=== PATIENT | male | born 1955 | race Caucasian/White ===

== ENCOUNTER → 2017-03-18 | Outpatient (CLI) | payer OTHER ==
--- NOTE | 2017-03-18 10:36 | CT ---
EXAMINATION TYPE: CT chest wo con DATE OF EXAM: 03/18/2017 COMPARISON: NONE HISTORY: SOB, Cough CT DLP: 268.3 mGycm, Automated exposure control for dose reduction was used. CONTRAST: Performed injected with 0 mL of Omnipaque 350. TECHNIQUE: Axial images were obtained at 5 mm thick sections. Reconstructed images are reviewed on [employer] computer in the coronal plane. FINDINGS: Portion of the thyroid visualized is normal. No suspicious lung nodules or focal infiltrates are present. No enlarged mediastinal or hilar adenopathy is evident. The ascending aorta diameter at the level o f the main pulmonary artery is 3.7 cm. The main pulmonary artery diameter at the bifurcation is 1.9 cm. Some coronary artery calcification is present. Limited CT sections are obtained through the upper abdomen. Abdomen is essentially unremarkable. IMPRESSIONS: 1. Normal Chest CT.
== END | disposition home or self-care (01) ==
LOC: RADCTMAIN 08:53
PROVIDERS: ATTEND Family Medicine
DX: R06.02 Shortness of breath (principal); R05 Cough
CPT/HCPCS: 71250

== ENCOUNTER → 2019-06-24 | Outpatient (CLI) | payer MEDICARE, BC ==
--- NOTE | 2019-06-24 10:57 | US ---
EXAMINATION TYPE: US duplex aorta DATE OF EXAM: 06/24/2019 COMPARISON: NONE CLINICAL HISTORY: Z13.6 encounter for cardiovascular disorders. EXAM MEASUREMENTS: Abdominal Aorta: Proximal: 2.0 Mid: 1.4 Distal: 1.5 Bifurcation: Rt: 1.1cm Lt: 1.3cm Mild atherosclerotic changes noted. Grayscale, color Doppler and spectral Doppler imaging performed. Atheromatous changes are present, ir regular wall is noted to the aortoiliac vasculature. IMPRESSION: No evident abdominal aortic aneurysm
== END | disposition home or self-care (01) ==
LOC: RADUSWWP 10:08
PROVIDERS: ATTEND Family Medicine
DX: Z13.6 Encounter for screening for cardiovascular disorders (principal)
CPT/HCPCS: 93979

== ENCOUNTER → 2019-07-29 | Outpatient (CLI) | payer MEDICARE, BC ==
--- NOTE | 2019-07-29 12:08 | CTL ---
EXAMINATION TYPE: CT Low Dose Lung DATE OF EXAM ORDERED: 07/29/2019 HISTORY: Long-term tobacco use. Lung cancer screening CT DLP: 97.[address] CTDI: 2.4 mGy Automated exposure control for dose reduction was used. SCREENING VISIT: Initial study COMPARISON: Chest CT November 15, 2016. TECHNIQUE: Low dose computed tomography scan was performed through the chest at 1 mm thick sections a nd reconstructed images in the coronal plane at [address] DIAGNOSTIC QUALITY: Satisfactory FINDINGS: LUNG NODULES: None. LUNGS: COPD: Severity: Mild Fibrosis: Severity: Mild Lymph nodes: No new greater than 1 cm Other findings: None BILATERAL PLEURAL SPACE: Effusion: None Calcification: None Thickening: None Pneumothorax: None HEART: Heart Size: Normal Coronary calcification: Mild Pericardial effusion: None OTHER FINDINGS: Upper abdomen: None Bony thorax: Mild multilevel spurring. Supraclavicular region: None Other: Small degree of subareolar gynecomastia redemonstrated. IMPRESSION: Mild emphysematous change without suspicious nodules. FOLLOW UP CT CHEST RECOMMENDATION: Annual low-dose lung screening CT CT LUNG RAD: Lung-Rad 1 Negative
== END | disposition home or self-care (01) ==
LOC: RADCTMAIN 11:32
PROVIDERS: ATTEND Family Medicine
DX: J43.9 Emphysema, unspecified (principal); Z87.891 Personal history of nicotine dependence

== ENCOUNTER → 2020-02-02 | Outpatient (CLI) | payer MEDICARE, BC ==
[2020-02-02 13:53] LABS: Basophils # (A) 0.1 k/uL (0-0.2); Basophils % (A) 1 %; Eosinophils # (A) 0.1 k/uL (0-0.7); Eosinophils % (A) 2 %; HCT 46.6 % (39.0-53.0); HGB 15.3 gm/dL (13.0-17.5); Lymphocytes # (A) 1.5 k/uL (1.0-4.8); Lymphocytes % (A) 21 %; MCH 31.6 pg (25.0-35.0); MCHC 32.8 g/dL (31.0-37.0); MCV 96.4 fL (80.0-100.0); Mean Platelet Volume 7.4; Monocytes # (A) 0.4 k/uL (0-1.0); Monocytes % (A) 6 %; Neutrophils % (A) 69 %; Platelet Count 212 k/uL (150-450); RBC 4.83 m/uL (4.30-5.90); RDW 12.6 % (11.5-15.5); WBC 7.2 k/uL (3.8-10.6)
== END | disposition home or self-care (01) ==
LOC: LABPAT 12:20
PROVIDERS: ATTEND Surgery
DX: Z01.818 Encounter for other preprocedural examination (principal)
CPT/HCPCS: 85025

== ENCOUNTER 2020-02-09 08:05 | Day surgery (SDC) | payer MEDICARE, BC ==
[2020-02-03 10:23] VITALS: BMI 21.2
[~2020-02-09 08:05] MED LIST: ACETAMINOPHEN TAB 500 MG TAB PO ONE; DEXAMETHASONE SOD PHOSPHATE 10 MG/ML 1 ML VIAL IV ONE; HEPARIN SODIUM,PORCINE 5,000 UNIT/ML 1 ML VIAL SQ ONE; LACTATED RINGERS 1,000 ML IV SCH; MIDAZOLAM 2 MG/2 ML VIAL IV PRN; ONDANSETRON 4 MG/2 ML VIAL IVP ONE
[2020-02-09] MEDS ORDERED: ACETAMINOPHEN TAB 500 MG TAB ONE (08:35)
[2020-02-09] MEDS ORDERED: HEPARIN SODIUM,PORCINE 5,000 UNIT/ML 1 ML VIAL ONE (08:36)
[2020-02-09] MEDS ORDERED: ONDANSETRON 4 MG/2 ML VIAL ONE (08:36)
[2020-02-09 08:50] LABS: Glucose,Whole Blood 150 mg/dL (75-99)
--- NOTE | 2020-02-09 09:23 | P.GSHP ---
History of Present Illness H&P Date: 02/09/20 Chief Complaint: Left inguinal hernia This a 64-year-old male who presents today for laparoscopic robotic-assisted repair of left inguinal hernia. Patient still pain and left groin. Past Medical History Past Medical History: Diabetes Mellitus, Hyperlipidemia, Osteoarthritis (OA) Additional Past Medical History / Comment(s): unexplained wt loss of 25 lbs over past 2 years History of Any Multi-Drug Resistant Organisms: None Reported Past Surgical History: Orthopedic Surgery Additional Past Surgical History / Comment(s): gerson cataracts, "surgery to reconstruction thumb sockets" Past Anesthesia/Blood Transfusion Reactions: Unable to Obtain, Previous Problems w/ Anesthesia Additional Past Anesthesia/Blood Transfusion Reaction / Comment(s): woke up during surgery, nerve block did not work for hand surgery, not sure of family hx Smoking Status: Current every day smoker - Past Family History Father Family Medical History: Cancer Medications and Allergies Home Medications Medication Instructions Recorded Confirmed Type Simvastatin [Zocor] 40 mg PO HS 02/03/20 02/09/20 History metFORMIN HCL [Glucophage] 1,000 mg PO BID 02/03/20 02/09/20 History Allergies Allergy/AdvReac Type Severity Reaction Status Date / Time No Known Allergies Allergy Verified 02/03/20 10:12 Surgical - Exam Vital Signs Temp Pulse Resp BP Pulse Ox 98.6 F 68 17 138/73 95 02/09/20 08:55 02/09/20 08:55 02/09/20 08:55 02/09/20 08:55 02/09/20 08:55 - General well developed, well nourished, no distress - Eyes PERRL - ENT normal pinna - Neck no masses - Respiratory normal expansion - Cardiovascular Rhythm: regular - Abdomen Abdomen: soft, non tender Hernia: inguinal (Left inguinal hernia) Results - Labs Abnormal Lab Results - Last 24 Hours (Table) 02/09/20 Range/Units 08:48 POC Glucose (mg/dL) 150 H (75-99) mg/dL Assessment and Plan Assessment: Left and one hernia. We'll perform laparoscopic robotic-assisted repair.
[2020-02-09] MEDS ORDERED: PHENYLEPHRINE-0.9% NACL SYG 1 MG/10 ML SYRINGE ONE (09:42)
[2020-02-09] MEDS ORDERED: LIDOCAINE 1% INJ 10MG/ML (20 ML MDV) ONE (09:42)
[2020-02-09] MEDS ORDERED: SUCCINYLCHOLINE CHLORIDE 100 MG/5 ML SYR IV ONE (09:42)
[2020-02-09] MEDS ORDERED: PROPOFOL 10 MG/ML 20 ML VIAL IV ONE (09:42)
[2020-02-09] MEDS ORDERED: fentaNYL (PF) 50 MCG/ML 2 ML AMP ONE (09:42)
[2020-02-09] MEDS ORDERED: ROCURONIUM BROMIDE 10 MG/ML 5 ML VIAL IV ONE (09:42)
[2020-02-09] MEDS ORDERED: NEOSTIGMINE 1 MG/ML 10 ML VIAL ONE (09:42)
[2020-02-09] MEDS ORDERED: GLYCOPYRROLATE 0.2 MG/ML 2 ML VIAL ONE (09:42)
[2020-02-09] MEDS ORDERED: MIDAZOLAM 2 MG/2 ML VIAL ONE (09:42)
[2020-02-09] MEDS ORDERED: LACTATED RINGERS 1,000 ML IV ONE (10:07)
[2020-02-09] MEDS ORDERED: LIDOCAINE 1%-EPI 1:100,000 20 ML VIAL SQ ONE (10:11)
--- NOTE | 2020-02-09 10:43 | P.OP ---
Date of Procedure: 02/09/20 Preoperative Diagnosis: Left inguinal hernia Postoperative Diagnosis: Bilateral inguinal hernia Procedure(s) Performed: Laparoscopic robotic Bilateral inguinal hernia Anesthesia: ALLY Surgeon: Riley Jacob Estimated Blood Loss (ml): 5 Pathology: none sent Condition: stable Disposition: PACU Description of Procedure: The patient's placed on the operating table in the supine position. The patient received general anesthesia. The patient's abdomen was prepped and draped in usual sterile fashion. The skin was anesthetized 1% local Xylocaine at the incision sites. Using an 11 blade a skin incision was made at the umbilicus. The fascia was grasped with a Ileana and then the peritoneal cavity was entered with the Veress needle. Position of the Veress needle was confirmed with a positive drop test. After adequate insufflation a 5 mm trocar was placed into the peritoneal cavity. The Laparoscope was placed the peritoneal cavity. And a robotic 8 mm trocar was placed in the right lateral position and then another 8 mm robotic trochars placed in the left lateral position. The original 5 mm trocar was exchanged for a 12 mm trocar. The patient was placed in reverse Trendelenburg and then the patient was docked to the robot. Next the peritoneum over top of the right inguinal hernia was incised and then using blunt and sharp dissection and electrocautery the hernia sac was dissected free from the floor of the inguinal canal. The hernia sac was completely reduced into the peritoneal cavity. And then using the Pro air route traffic controller mesh the hernia was repaired. The peritoneum was then sutured with 20V lock suture. Next the peritoneum over top of the left inguinal hernia was incised and then using blunt and sharp dissection and electrocautery the hernia sac was dissected free from the floor of the inguinal canal. The hernia sac was completely reduced into the peritoneal cavity. And then using the Pro air route traffic controller mesh the hernia was repaired. The peritoneum was then sutured with 20V lock suture. The patient was then undocked the robot. The needle was withdrawn from the peritoneal cavity. The umbilical trocar site was closed with 0 Ethibond suture. The skin was closed interrupted 3-0 Monocryl suture. Dermabond dressing was applied. Patient was sent to recovery in stable condition.
[2020-02-09] MEDS: HYDROmorphone 0.5 MG/0.5 ML SYRINGE IVP PRN ×2 (10:53→10:58)
[2020-02-09 10:58] VITALS: RESP 16; TEMP 97.2
[2020-02-09 11:12] LABS: Glucose,Whole Blood 207 mg/dL (75-99)
[2020-02-09 11:42] VITALS: BP 122/55; PULSE 65
[2020-02-09] MEDS ORDERED: HYDROcodone/APAP 5-325MG 1 EACH TAB ONE (11:50)
[2020-02-09] MEDS ORDERED: HYDROcodone/APAP 5-325MG 1 EACH TAB PO ONE (12:20)
== END 2020-02-09 12:42 | disposition home or self-care (01) ==
LOC: OR 08:05
PROVIDERS: ATTEND Surgery
DX: K40.20 Bilateral inguinal hernia, without obstruction or gangrene, not specified as recurrent (principal); E11.9 Type 2 diabetes mellitus without complications; E78.5 Hyperlipidemia, unspecified; M19.90 Unspecified osteoarthritis, unspecified site; F17.210 Nicotine dependence, cigarettes, uncomplicated; Z79.84 Long term (current) use of oral hypoglycemic drugs; Z79.899 Other long term (current) drug therapy; Z98.41 Cataract extraction status, right eye; Z98.42 Cataract extraction status, left eye; Z98.890 Other specified postprocedural states; Z80.9 Family history of malignant neoplasm, unspecified
CPT/HCPCS: 49650; C1781; J2250; J1644; J1100; J2710; J0690; J2405; J2001; J3010; J2370; J0330; J2704; J1170

== ENCOUNTER → 2020-08-14 | Outpatient (CLI) | payer MEDICARE, BC ==
--- NOTE | 2020-08-14 15:48 | CTL ---
EXAMINATION TYPE: CT Low Dose Lung DATE OF EXAM ORDERED: 08/14/2020 HISTORY: Personal history tobacco use. Lung cancer screening CT DLP: 87.[address] CTDI: 2.2 mGy Automated exposure control for dose reduction was used. SCREENING VISIT: Subsequent COMPARISON: 07/29/2019 TECHNIQUE: Low dose computed tomography scan was performed through the chest at 1 mm thick sections a nd reconstructed images in the coronal plane at [address] DIAGNOSTIC QUALITY: Satisfactory FINDINGS: LUNG NODULES: None. Tiny area of pneumonitis is in the posterior medial left apex. Series 4 image 26. Couple small areas of mild emphysematous blebs and bulla may be present. Mild peribronchial thickening may be present. LUNGS: COPD: Severity: Mild Fibrosis: Severity: None Lymph nodes: None Other findings: None RIGHT PLEURAL SPACE: Effusion: None Calcification: None Thickening: None Pneumothorax: None LEFT PLEURAL SPACE: Effusion: None Calcification: None Thickening: None Pneumothorax: None HEART: Heart Size: Normal Coronary calcification: Mild Pericardial effusion: None OTHER FINDINGS: Upper abdomen: Normal Bony thorax: Normal Supraclavicular region: Normal Other: Ascending thoracic aorta at the level the main pulmonary artery measures 3.3 cm. The main pul monary artery at the bifurcation measures 2.3 cm. IMPRESSION: No suspicious changes. FOLLOW UP CT CHEST RECOMMENDATION: Low dose CT chest [address] LUNG RAD: 2
== END | disposition home or self-care (01) ==
LOC: RADCTMAIN 13:34
PROVIDERS: ATTEND Family Medicine
DX: Z12.2 Encounter for screening for malignant neoplasm of respiratory organs (principal); F17.210 Nicotine dependence, cigarettes, uncomplicated
CPT/HCPCS: 71271

== ENCOUNTER 2020-11-21 09:46 | Day surgery (SDC) | payer MEDICARE, BC ==
[2020-11-17 09:12] VITALS: BMI 21.5
[~2020-11-21 09:46] MED LIST changes: -ACETAMINOPHEN TAB 500 MG TAB PO ONE; +ACETAMINOPHEN TAB 500 MG TAB PO PRN; -DEXAMETHASONE SOD PHOSPHATE 10 MG/ML 1 ML VIAL IV ONE; +DEXAMETHASONE SOD PHOSPHATE 4 MG/ML 1 ML VIAL IV ONE; -HEPARIN SODIUM,PORCINE 5,000 UNIT/ML 1 ML VIAL SQ ONE; +HEPARIN SODIUM,PORCINE/PF 5,000 UNIT/0.5 ML SYRINGE SQ PRN; +HYDROmorphone 0.5 MG/0.5 ML SYRINGE IVP PRN; +LIDOCAINE 1% (10MG/ML) FOR IV START INTRADERMA PRN
[2020-11-21 10:34] LABS: Glucose,Whole Blood 153 mg/dL (75-99)
--- NOTE | 2020-11-21 11:18 | P.GSHP ---
History of Present Illness H&P Date: 11/21/20 Chief Complaint: Incarcerated left inguinal hernia This 65-year-old male has developed incarcerated left renal hernia. Patient rents today for open repair. Past Medical History Past Medical History: COPD, Diabetes Mellitus, Hyperlipidemia Additional Past Medical History / Comment(s): "low blood pressure", History of Any Multi-Drug Resistant Organisms: None Reported Past Surgical History: Hernia Repair, Orthopedic Surgery Additional Past Surgical History / Comment(s): reconstruction gerson thumbs sockets, gerson cataracts Past Anesthesia/Blood Transfusion Reactions: Previous Problems w/ Anesthesia Additional Past Anesthesia/Blood Transfusion Reaction / Comment(s): woke up during both thumb surgeries. "nerve block did not work and woke up with general" Smoking Status: Current every day smoker - Past Family History Father Family Medical History: Cancer Brother(s) Family Medical History: Cancer Medications and Allergies Home Medications Medication Instructions Recorded Confirmed Type Simvastatin [Zocor] 40 mg PO HS 02/03/20 11/17/20 History metFORMIN HCL [Glucophage] 1,000 mg PO BID 02/03/20 11/17/20 History Allergies Allergy/AdvReac Type Severity Reaction Status Date / Time No Known Allergies Allergy Verified 11/21/20 10:09 Surgical - Exam Vital Signs Temp Pulse Resp BP Pulse Ox 97.6 F 79 17 138/73 98 11/21/20 10:14 11/21/20 10:14 11/21/20 10:14 11/21/20 10:14 11/21/20 10:14 - General well developed, well nourished, no distress - Eyes PERRL - ENT normal pinna - Neck no masses - Respiratory normal expansion - Cardiovascular Rhythm: regular - Abdomen Abdomen: soft, non tender Hernia: inguinal (Left inguinal hernia incarcerated) Results - Labs Abnormal Lab Results - Last 24 Hours (Table) 11/21/20 Range/Units 10:32 POC Glucose (mg/dL) 153 H (75-99) mg/dL Assessment and Plan Assessment: Cursory left renal hernia. We'll perform open repair.
[2020-11-21] MEDS ORDERED: MIDAZOLAM 2 MG/2 ML VIAL ONE (11:32)
[2020-11-21] MEDS ORDERED: NEOSTIGMINE 1 MG/ML 10 ML VIAL ONE (11:32)
[2020-11-21] MEDS ORDERED: PROPOFOL 10 MG/ML 20 ML VIAL IV ONE (11:32)
[2020-11-21] MEDS ORDERED: SUCCINYLCHOLINE CHLORIDE 100 MG/5 ML SYR IV ONE (11:32)
[2020-11-21] MEDS ORDERED: fentaNYL (PF) 50 MCG/ML 2 ML AMP ONE (11:32)
[2020-11-21] MEDS ORDERED: LIDOCAINE 1% INJ 10MG/ML (20 ML MDV) ONE (11:32)
[2020-11-21] MEDS ORDERED: GLYCOPYRROLATE 0.2 MG/ML 2 ML VIAL ONE (11:32)
[2020-11-21] MEDS ORDERED: ROCURONIUM 10 MG/ML (5 ML VIAL) IV ONE (11:32)
[2020-11-21] MEDS ORDERED: BUPIVACAIN-EPI 0.5%-1:200,000 30 ML VIAL SQ ONE (11:58)
[2020-11-21] MEDS ORDERED: LACTATED RINGERS 1,000 ML IV ONE (12:06)
--- NOTE | 2020-11-21 12:15 | P.OP ---
Date of Procedure: 11/21/20 Preoperative Diagnosis: Left inguinal hernia Postoperative Diagnosis: Left inguinal hernia Procedure(s) Performed: Repair of left inguinal hernia with Prolene hernia mesh system plug Anesthesia: ALLY Surgeon: Riley Jacob Estimated Blood Loss (ml): 5 Pathology: none sent Condition: stable Disposition: PACU Description of Procedure: DESCRIPTION OF PROCEDURE: The patient was placed in the supine position after receiving adequate anesthesia. Patients groin was prepped and draped in the usual sterile fashion. A standard hernia incision was made and the subcutaneous tissues were divided with electrocautery. The fascia of the external oblique was exposed. A mandie the fascia was made with #15 blade. The fascia was then opened with pair of Metzenbaum scissors. A Weitlaner retractor was placed in the wound and the cord structures were grasped and dissected free from the inguinal canal. A rubber Ruth Ann drain was placed around the cord structures. The hernial sac was seen on the anterior-medial portion of the cord and this was dissected free from the cord. The hernia sac was then invaginated to the peritoneal cavity. Using blunt finger dissection, the preperitoneal space was dissected and then the Prolene hernial mesh plug was placed into the prepared space. The inferior leaf was expanded. The superior leaf was secured to the pubic tubercle using 2-0 Prolene suture. The lateral portion of the superior leaf was incised and cords tied and secured to the transversalis fascia using 2-0 Prolene suture. Fascia of the external oblique was then closed using #0 Vicryl suture. The Ruth Ann drain was removed. The Scarpas fascia was then closed with 3-0 Vicryl suture and skin was closed with vinicio. The patient tolerated the procedure well.
[2020-11-21 12:28] VITALS: TEMP 97
[2020-11-21 13:28] VITALS: RESP 18
[2020-11-21 14:10] VITALS: BP 112/78; PULSE 62
== END 2020-11-21 14:15 | disposition home or self-care (01) ==
LOC: OR 09:46
PROVIDERS: ATTEND Surgery
DX: K40.90 Unilateral inguinal hernia, without obstruction or gangrene, not specified as recurrent (principal); J44.9 Chronic obstructive pulmonary disease, unspecified; E11.9 Type 2 diabetes mellitus without complications; E78.5 Hyperlipidemia, unspecified; Z79.899 Other long term (current) drug therapy; Z79.84 Long term (current) use of oral hypoglycemic drugs
CPT/HCPCS: 49505; C1781; J2250; J1100; J2710; J0690; J2405; J2001; J3010; J0330; J2704; J1644

== ENCOUNTER → 2021-08-31 | Outpatient (CLI) | payer MEDICARE, BC ==
--- NOTE | 2021-08-31 08:39 | CTL ---
EXAMINATION TYPE: CT Low Dose Lung DATE OF EXAM ORDERED: 08/31/2021 HISTORY: Smoker. Lung cancer screening CT DLP: 77.[address] CTDI: 2.0 mGy Automated exposure control for dose reduction was used. SCREENING VISIT: Follow-up COMPARISON: CT dated 08/14/2020 TECHNIQUE: Low dose computed tomography scan was performed through the chest at 1 mm thick sections a nd reconstructed images in multiple planes at 1 mm and [address] DIAGNOSTIC QUALITY: Satisfactory FINDINGS: LUNG NODULES: Left upper lobe solid [address] image 100. This nodule is stable. Left lung apex semisolid [address] image 47. This nodule is stable. LUNGS: COPD: Severity: Mild to moderate Fibrosis: Severity: Minimal bilateral apical fibrotic changes Lymph nodes: No pathologically enlarged lymph nodes Other findings: None RIGHT PLEURAL SPACE: Effusion: None Calcification: None Thickening: None Pneumothorax: None LEFT PLEURAL SPACE: Effusion: None Calcification: None Thickening: None Pneumothorax: None HEART: Heart Size: Normal Coronary Calcification: Mild to moderate Pericardial Effusion: None OTHER FINDINGS: Upper abdomen: Stable thickened left adrenal. Bony thorax: No aggressive bone lesion Supraclavicular region: None Other: Scattered arterial atherosclerotic calcifications IMPRESSION: Stable lung nodules and COPD changes. CT LUNG RAD AND CT CHEST RECOMMENDATION: Lung-Rad 2 Benign Appearance or Behavior: Continue annual sc reening with LDCT in 12 months. S Modifier (other clinically significant findings): None
== END | disposition home or self-care (01) ==
LOC: RADCTMAIN 07:19
PROVIDERS: ATTEND Family Medicine
DX: Z12.2 Encounter for screening for malignant neoplasm of respiratory organs (principal); R91.8 Other nonspecific abnormal finding of lung field; J44.9 Chronic obstructive pulmonary disease, unspecified; F17.210 Nicotine dependence, cigarettes, uncomplicated
CPT/HCPCS: 71271

== ENCOUNTER → 2022-03-05 | Outpatient (CLI) | payer MEDICARE, BC ==
--- NOTE | 2022-03-05 10:07 | CA ---
Exercise Stress Test Report Name: Geovani Sewell Exam Date: 03/05/2022 09:27 Exam Location: [place] Stress Ht (in): 70 Wt (lb): 140 BSA: 1.79 Ordering Phys: Bill Vincent DO Referring Phys: Bill Vincent DO Technologist: Prakash Hi Age: 66 Gender: M : 1955 Procedure CPT: Indications: I65.29 OCCLUSION AND STENOSIS OF UNSPECIFIED R07.9 ICD-10 Codes: Patient History: Chest Pain Medications: Metformin and Atorvastatin Meds past 24 hrs: Pretest Chest Pain: STRESS TEST Fritz Protocol Exercise Duration (min:sec): 10:[address] Depressions (mm): Angina Score: Osuna Score: Resting HR (bpm): 70 Peak HR (bpm): 140 Resting BP (mmHg): 136 / 79 Peak BP (mmHg): 140 / 85 MPHR: 153 Target HR: 130 % MPHR: 92 METS: 12.1 Total Dose: Peak Dose: Atropine: Double Product: 11274 BP Response: Stress Termination: Reached target heart rate Stress Symptoms: No chest pain or symptoms Stress Summary: ECG ANALYSIS Resting ECG: Stress ECG: CONCLUSIONS Good exercise capacity. Baseline EKG revealed normal sinus rhythm no significant ST-T changes. Patient walked for 10 minutes 40 seconds and achieved a heart rate of 140 bpm which is 92% of predicted maximal. Blood pressure went up from 136/79- 140/85. Somewhat of a blunted blood pressure response. However but no symptoms of angina EKG was unremarkable for ischemia there was no arrhythmia. This is a negative stress test with excellent excise capacity Dr. Kelsea Cox MD (Electronically Signed) Final Date: 05 March 2022 10:06
== END | disposition home or self-care (01) ==
LOC: RADNMMAIN 08:51
PROVIDERS: ATTEND Family Medicine
DX: R07.9 Chest pain, unspecified (principal)
CPT/HCPCS: 93017

== ENCOUNTER → 2022-03-06 | Outpatient (CLI) | payer MEDICARE, BC ==
--- NOTE | 2022-03-07 07:39 | CA ---
Transthoracic Echo Report Name: Geovani Sewell Age: 66 Gender: M : 1955 Exam Date: 03/06/2022 14:09 Exam Location: [place] Echo Ht (in): 70 Wt (lb): 140 Ordering Physician: Bill Vincent DO Attending/Referring Phys: Bill Vincent DO Supervisor Mechanic Boilermaking Florencia Baer RDCS Procedure CPT: Indications: I65.29 CCLUSION AND STENOSIS OF UNSPECIFIED R07.9 Cardiac Hx: Technical Quality: Fair Contrast 1: Total Dose (mL): Contrast 2: Total Dose (mL): MEASUREMENTS (Male / Female) Normal Values 2D ECHO LV Diastolic Diameter PLAX 3.2 cm 4.2 - 5.9 / 3.9 - 5.3 cm LV Systolic Diameter PLAX 2.5 cm IVS Diastolic Thickness 1.0 cm 0.6 - 1.0 / 0.6 - 0.9 cm LVPW Diastolic Thickness 1.0 cm 0.6 - 1.0 / 0.6 - 0.9 cm LV Relative Wall Thickness 0.6 M-MODE Aortic Root Diameter MM 3.3 cm LA Systolic Diameter MM 1.8 cm LA Ao Ratio MM 0.6 MV E Point Septal Separation 1.2 cm AV Cusp Separation MM 1.5 cm DOPPLER AV Peak Velocity 118.9 cm/s AV Peak Gradient 5.7 mmHg MV Area PHT 6.6 cm??? MR Peak Velocity 124.1 cm/s MR Peak Gradient 6.2 mmHg Mitral E Point Velocity 56.7 cm/s Mitral A Point Velocity 82.1 cm/s Mitral E to A Ratio 0.7 MV Deceleration Time 114.2 ms MV E' Velocity 9.8 cm/s Mitral E to MV E' Ratio 5.8 TR Peak Velocity 114.9 cm/s TR Peak Gradient 5.3 mmHg Right Ventricular Systolic Press 10.2 mmHg FINDINGS Left Ventricle Left ventricular ejection fraction is estimated at 55-60 %. Normal Left ventricular size, wall thickness, systolic function with no obvious regional wall motion abnormalities. Normal Left ventricular diastolic filling pattern. Right Ventricle The right ventricle is normal in size and function. Right Atrium The right atrium is normal in size. Left Atrium The left atrium is normal in size. Mitral Valve Structurally normal mitral valve without significant stenosis or prolapse. There is trace mitral regurgitation. Aortic Valve Structurally normal aortic valve without significant sclerosis or stenosis. There is no aortic regurgitation. Focal thickening of the aortic valve cusps. Tricuspid Valve Structurally normal tricuspid valve without significant stenosis. Pulmonary artery systolic pressure is normal. Trace tricuspid regurgitation. Pulmonic Valve Structurally normal pulmonic valve without significant stenosis. There is no pulmonic regurgitation. Pericardium Normal pericardium without effusion. Aorta Normal aortic root dimension. CONCLUSIONS Normal LV size and systolic function. Minimal mitral and tricuspid insufficiency. No pericardial effusion Previewed by: Dr. Kelsea Cox MD (Electronically Signed) Final Date: 07 March 2022 07:38
== END | disposition home or self-care (01) ==
LOC: RADECHMAIN 14:01
PROVIDERS: ATTEND Family Medicine
DX: I08.1 Rheumatic disorders of both mitral and tricuspid valves (principal)
CPT/HCPCS: 93306

== ENCOUNTER → 2022-04-11 | Day surgery (SDC) | payer MEDICARE, BC ==
[2022-04-09 15:19] VITALS: BMI 19.5
[~2022-04-11] MED LIST changes: -ACETAMINOPHEN TAB 500 MG TAB PO PRN; -DEXAMETHASONE SOD PHOSPHATE 4 MG/ML 1 ML VIAL IV ONE; -HEPARIN SODIUM,PORCINE/PF 5,000 UNIT/0.5 ML SYRINGE SQ PRN; -HYDROmorphone 0.5 MG/0.5 ML SYRINGE IVP PRN; -LIDOCAINE 1% (10MG/ML) FOR IV START INTRADERMA PRN; +LIDOCAINE 2% INJ 20 MG/ML (2 ML VIAL) ONE; -MIDAZOLAM 2 MG/2 ML VIAL IV PRN; -ONDANSETRON 4 MG/2 ML VIAL IVP ONE; +PROPOFOL 10 MG/ML 20 ML VIAL IV ONE
[2022-04-11 08:29] VITALS: TEMP 98.7
[2022-04-11 08:34] LABS: Glucose,Whole Blood 144 mg/dL (70-110)
--- NOTE | 2022-04-11 08:58 | P.GSHP ---
History of Present Illness H&P Date: 04/11/22 Chief Complaint: GERD, screening colonoscopy This is a 66-year-old male presents today for EGD and colonoscopy. Patient's had issues with GERD. She also will undergo screening colonoscopy. Past Medical History Past Medical History: COPD, Diabetes Mellitus, Hyperlipidemia Additional Past Medical History / Comment(s): "low blood pressure", History of Any Multi-Drug Resistant Organisms: None Reported Past Surgical History: Hernia Repair, Orthopedic Surgery Additional Past Surgical History / Comment(s): reconstruction gerson thumbs so ckets, gerson cataracts, COLONOSCOPY Past Anesthesia/Blood Transfusion Reactions: Previous Problems w/ Anesthesia Additional Past Anesthesia/Blood Transfusion Reaction / Comment(s): woke up during both thumb surgeries. "nerve block did not work and woke up with general" Smoking Status: Current every day smoker - Past Family History Father Family Medical History: Cancer Brother(s) Family Medical History: Cancer Medications and Allergies Home Medications Medication Instructions Recorded Confirmed Type Simvastatin [Zocor] 40 mg PO HS 02/03/20 04/11/22 History metFORMIN HCL [Glucophage] 1,000 mg PO BID 02/03/20 04/11/22 History Allergies Allergy/AdvReac Type Severity Reaction Status Date / Time No Known Allergies Allergy Verified 04/11/22 08:19 Surgical - Exam Vital Signs Temp Pulse Resp BP Pulse Ox 98.7 F 83 14 141/75 97 04/11/22 08:16 04/11/22 08:16 04/11/22 08:16 04/11/22 08:16 04/11/22 08:16 - General well developed, well nourished, no distress - Eyes PERRL - ENT normal pinna - Neck no masses - Respiratory normal expansion - Cardiovascular Rhythm: regular - Abdomen Abdomen: soft, non tender Results - Labs Abnormal Lab Results - Last 24 Hours (Table) 04/11/22 Range/Units 08:28 POC Glucose (mg/dL) 144 H (70-110) mg/dL Assessment and Plan Assessment: GERD. We'll perform EGD and screening colonoscopy
--- NOTE | 2022-04-11 09:19 | P.OP ---
Date of Procedure: 04/11/22 Preoperative Diagnosis: GERD Screening colonoscopy Postoperative Diagnosis: Antral gastritis Internal and external hemorrhoids Mild diverticulosis Procedure(s) Performed: EGD Colonoscopy Anesthesia: MAC Surgeon: Riley Jacob Pathology: other (Antrum) Condition: stable Disposition: PACU Description of Procedure: The patient's placed on the endoscopy table in the lateral position. He received IV sedation. The gastro-/oropharynx passed in the esophagus and stomach. Scope was placed through the pylorus. First and second portion of the duodenum appeared normal. The scope summer back the antrum this. Mildly inflamed. Biopsies performed. Scope was then retroflexed and the remainder of the stomach. Normal. There was no significant hiatal hernia. The GE junction was at 40 cm. The distal esophagus appeared normal. The proximal esophagus appeared normal. Scope was withdrawn for patient. Next digital rectal exam was performed. This revealed some internal and external hemorrhoids. The flexible colonoscope was then placed patient anus and passed throughout the entire colon. The ileocecal valve was visualized. The cecum, ascending and transverse colon appeared normal. In the descending and; there is a few scattered diverticuli. The scope was then brought back the rectum and this appeared normal. The scope was withdrawn for patient.
[2022-04-11 09:38] VITALS: RESP 18
[2022-04-11 11:24] VITALS: BP 138/78; PULSE 78
== END | disposition home or self-care (01) ==
LOC: ORWHC2ENDO 07:47
PROVIDERS: ATTEND Surgery
DX: Z12.11 Encounter for screening for malignant neoplasm of colon (principal); K29.50 Unspecified chronic gastritis without bleeding; K21.9 Gastro-esophageal reflux disease without esophagitis; K64.4 Residual hemorrhoidal skin tags; K64.8 Other hemorrhoids; K57.30 Diverticulosis of large intestine without perforation or abscess without bleeding; J44.9 Chronic obstructive pulmonary disease, unspecified; E11.9 Type 2 diabetes mellitus without complications; E78.5 Hyperlipidemia, unspecified; F17.210 Nicotine dependence, cigarettes, uncomplicated; Z98.42 Cataract extraction status, left eye; Z98.41 Cataract extraction status, right eye; Z80.9 Family history of malignant neoplasm, unspecified; Z79.84 Long term (current) use of oral hypoglycemic drugs
CPT/HCPCS: 88305; 43239; G0121; J2704; J2001; 45378

== ENCOUNTER → 2022-10-29 | Outpatient (CLI) | payer MEDICARE, BC ==
--- NOTE | 2022-10-29 10:44 | CTL ---
EXAMINATION TYPE: CT Low Dose Lung DATE OF EXAM ORDERED: 10/29/2022 HISTORY: . Lung cancer screening CT DLP: 77.[address] CTDI: 1.90 mGy Automated exposure control for dose reduction was used. SCREENING VISIT: COMPARISON: 08/31/2021 TECHNIQUE: Low dose computed tomography scan was performed through the chest at 1 mm thick sections a nd reconstructed images in multiple planes at 1 mm and [address] DIAGNOSTIC QUALITY: Satisfactory FINDINGS: There is a stable 2 mm nodule in the left upper lobe axial image 22. There is a stable 4 mm nodule left lung apex axial image 51 There are multiple less than 5 mm subpleural nodule seen in the right upper lobe which are similar to prior exam. There is mild to moderate emphysematous changes. There is no evidence of pleural effusion or pneumoth orax. No focal pneumonia. No overt failure. There is hypertrophic and degenerative change of the spine. Atherosclerotic change of the aorta with no evidence of aneurysm. Calcification of the coronary arteries and aortic valve suggestive with the heart size which is normal. Atherosclerotic change aorta but no evidence of aneurysm. IMPRESSION: 1. Mild to moderate emphysematous changes with stable bilateral less than 5 mm pulmonary nodules too small to characterize but presumably benign. 2. Coronary artery calcification and atherosclerotic change of the aortic valve. CT LUNG RAD AND CT CHEST RECOMMENDATION: Lung-Rad 2 Benign Appearance or Behavior: Continue annual sc reening with LDCT in 12 months.
== END | disposition home or self-care (01) ==
LOC: RADCTMAIN 09:22
PROVIDERS: ATTEND Family Medicine
DX: Z12.2 Encounter for screening for malignant neoplasm of respiratory organs (principal); F17.210 Nicotine dependence, cigarettes, uncomplicated; J43.9 Emphysema, unspecified; R91.8 Other nonspecific abnormal finding of lung field; I25.10 Atherosclerotic heart disease of native coronary artery without angina pectoris
CPT/HCPCS: 71271

== ENCOUNTER → 2023-11-13 | Outpatient (CLI) | payer MEDICARE, BC ==
--- NOTE | 2023-11-13 19:37 | CTL ---
EXAMINATION TYPE: CT Low Dose Lung DATE OF EXAM ORDERED: 11/13/2023 HISTORY: 68-year-old male F17.210 NICOTINE DEPENDENCE, CIGARETTES, UNCOMPLIC. Lung cancer screening. Current smoker with 33 pack-year history. CT DLP: 80.[address] CTDI: 2.0 mGy Automated exposure control for dose reduction was used. SCREENING VISIT: Annual follow-up COMPARISON: 11-19 TECHNIQUE: Low dose computed tomography scan was performed through the chest at 1 mm thick sections a nd reconstructed images in multiple planes at 1 mm and [address] DIAGNOSTIC QUALITY: Satisfactory FINDINGS: Heart is normal size without pericardial effusion. LAD and RCA coronary artery calcifications are pre sent. Aorta normal caliber with mild atherosclerotic arch calcifications into metatarsus branching anatomy. No thoracic lymphadenopathy by CT size criteria. Mild diffuse bronchial wall thickening. Moderate upper lung predominant centrilobular emphysema. Mini mal biapical pleural parenchymal scarring. No consolidation or pleural effusion. Stable 4 mm posterior left apical pulmonary nodule, axial image 49. No suspicious new or enlarging pu lmonary nodules seen. Visualized upper abdomen is very limited due to paucity of intra-abdominal fat and lack of contrast. Bones: No osseous destructive process. IMPRESSION: 1. LungRADS 2, benign. No suspicious new pulmonary nodule. 2. COPD with moderate emphysema. Recommend smoking cessation. CT LUNG RAD AND CT CHEST RECOMMENDATION: Lung-Rad 2 Benign Appearance or Behavior: Continue annual sc reening with LDCT in 12 months. S Modifier (other clinically significant findings): None
== END | disposition home or self-care (01) ==
LOC: RADCTMAIN 08:44
PROVIDERS: ATTEND Family Medicine
DX: Z12.2 Encounter for screening for malignant neoplasm of respiratory organs (principal); R91.1 Solitary pulmonary nodule; J44.9 Chronic obstructive pulmonary disease, unspecified; J43.2 Centrilobular emphysema; F17.210 Nicotine dependence, cigarettes, uncomplicated
CPT/HCPCS: 71271

== ENCOUNTER → 2024-03-22 | Outpatient (CLI) | payer MEDICARE, BC ==
[2024-03-22 15:21] LABS: ALT 12 U/L (10-49); AST 18 U/L (14-35); Albumin 4.6 g/dL (3.8-4.9); Albumin/Globulin Ratio 1.92 Ratio (1.60-3.17); Alkaline Phosphatase 76 U/L (41-126); BUN/Creat Ratio 17.36 Ratio (12.00-20.00); Blood Urea Nitrogen 19.1 mg/dL (9.0-27.0); Calcium 9.8 mg/dL (8.7-10.3); Carbon Dioxide 25.7 mmol/L (21.6-31.8); Chloride 103 mmol/L (96-109); Chol/HDL Ratio 3.37 Ratio; Globulin 2.4 g/dL (1.6-3.3); Glucose 154 mg/dL (70-110); LDL Cholesterol,Calculated 84.7 mg/dL (0.0-131.0); Sodium 140 mmol/L (135-145); Total Bilirubin 0.4 mg/dL (0.3-1.2)
== END | disposition home or self-care (01) ==
LOC: LABWHC1 10:39
PROVIDERS: ATTEND Family Medicine
DX: E11.9 Type 2 diabetes mellitus without complications (principal); E78.5 Hyperlipidemia, unspecified
CPT/HCPCS: 36415; 80053; 80061; 83036

== ENCOUNTER → 2024-07-19 | Outpatient (CLI) | payer MEDICARE, BC ==
[2024-07-19 15:02] LABS: ALT 11 U/L (10-49); AST 15 U/L (14-35); Albumin 4.5 g/dL (3.8-4.9); Albumin/Globulin Ratio 1.96 Ratio (1.60-3.17); Alkaline Phosphatase 75 U/L (41-126); BUN/Creat Ratio 16.91 Ratio (12.00-20.00); Blood Urea Nitrogen 18.6 mg/dL (9.0-27.0); Calcium 9.6 mg/dL (8.7-10.3); Carbon Dioxide 26.6 mmol/L (21.6-31.8); Chloride 103 mmol/L (96-109); Chol/HDL Ratio 3.46 Ratio; Globulin 2.3 g/dL (1.6-3.3); Glucose 161 mg/dL (70-110); LDL Cholesterol,Calculated 78.8 mg/dL (0.0-131.0); Potassium 4.8 mmol/L (3.5-5.5); Sodium 139 mmol/L (135-145); Total Bilirubin 0.4 mg/dL (0.3-1.2); Total Protein 6.8 g/dL (6.2-8.2)
== END | disposition home or self-care (01) ==
LOC: LABWHC1 10:28
PROVIDERS: ATTEND Family Medicine
DX: E11.9 Type 2 diabetes mellitus without complications (principal); E78.5 Hyperlipidemia, unspecified
CPT/HCPCS: 36415; 80053; 80061; 83036